=== PATIENT | female | born 1945 ===

== ENCOUNTER 2019-03-12 23:53 | Observation (INO) | payer MEDICARE, MEDICAID ==
[2019-03-12 23:54] VITALS: BMI 33.6
[2019-03-13 01:08] LABS: BASO % 0.3 % (0.0-2.0); HEMOGLOBIN 9.5 g/dL (12.0-16.0); LYMPH # 1.3 K/uL (1.0-4.3); LYMPH % 45.3 % (20.0-40.0); MEAN CELL VOLUME 82.7 fl (81.0-99.0); MEAN CORPUSCULAR HEMOGLOBIN 25.5 pg (27.0-31.0); MEAN CORPUSCULAR HGB CONC 30.8 g/dL (33.0-37.0); MEAN PLATELET VOLUME 9.8 fl (7.2-11.7); MONO # 0.3 K/uL (0.0-0.8); NEUT # 1.3 K/uL (1.8-7.0); NEUT % 45.4 % (50.0-75.0); NRBC % 0.1 % (0.0-0.0); RBC 3.74 Mil/uL (3.80-5.20); RED CELL DISTRIBUTION WIDTH 16.3 % (11.5-14.5); WHITE BLOOD COUNT 2.9 K/uL (4.8-10.8)
[2019-03-13 01:12] LABS: PROTHROMBIN TIME 10.9 Seconds (9.8-13.1)
--- NOTE | 2019-03-13 01:12 | ED PDOC ---
HPI: General Adult Time Seen by Provider: 03/13/19 00:21 Chief Complaint (Nursing): Chest Pain Chief Complaint (Provider): Dizziness History Per: Patient History/Exam Limitations: no limitations Onset/Duration Of Symptoms: Hrs (at 6pm ) Additional Complaint(s): 73 year old female with pmhx of type 2 diabetes and unsure of any other pmhx presents to the ED for an evaluation of dizziness onset at 6pm with multiple episodes of fainting which did not occur. Patient is compliant with her medicat ion including Metformin and Metoprolol. Otherwise, patient denies chest pain, shortness of breath, fever, numbness or weakness. 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[facility] PMD: Balbir Diallo Past Medical History Reviewed: Historical Data, Nursing Documentation, Vital Signs Vital Signs: Last Vital Signs Temp 97.7 F 03/13/19 00:00 Pulse 41 L 03/13/19 00:00 Resp 16 03/13/19 00:00 BP 136/59 L 03/13/19 00:20 Pulse Ox 99 03/13/19 00:00 Primary Care Provider: Balbir Diallo - Medical History PMH: Anemia, Anxiety, Arthritis (CERVICAL SPINE), Asthma, CAD, Depression, Diabetes, HTN, Hypercholesterolemia, Peripheral Edema - Surgical History Surgical History: CABG (X2), Coronary Stent, Endoscopy - Family History Family History: States: Unknown Family Hx - Home Medications Home Medications: Ambulatory Orders Medication Instructions Recorded Clopidogrel [Plavix] 75 mg PO DAILY #0 tab 12/09/14 MetFORMIN [glucoPHAGE] 1,000 mg PO BID 02/22/16 Montelukast [Singulair] 10 mg PO DAILY 06/09/16 Aspirin [Ecotrin] 1 tab PO DAILY 07/18/16 Acetaminophen/Oxycodone Hydr 1 tab PO PRN PRN 03/13/19 [Percocet 10/325 mg Tab] Alprazolam [Xanax] 2 mg PO PRN PRN 03/13/19 Bisoprolol Fumarate 5 mg PO DAILY 03/13/19 Isosorbide Mononitrate ER [Imdur 60 mg PO DAILY 03/13/19 ER] Mirtazapine [Remeron] 7.5 mg PO DAILY 03/13/19 - Allergies Allergies/Adverse Reactions: Allergies Allergy/AdvReac Type Severity Reaction Status Date / Time No Known Allergies Allergy Verified 03/13/19 00:00 Review of Systems ROS Statement: Except As Marked, All Systems Reviewed And Found Negative Constitutional: Negative for: Fever Cardiovascular: Negative for: Chest Pain Respiratory: Negative for: Cough, Shortness of Breath Neurological: Positive for: Dizziness. Negative for: Weakness, Numbness Physical Exam - Reviewed Nursing Documentation Reviewed: Yes Vital Signs Reviewed: Yes - Physical Exam Appears: Positive for: Non-toxic, No Acute Distress Head Exam: Positive for: ATRAUMATIC, NORMAL INSPECTION, NORMOCEPHALIC Skin: Positive for: Normal Color, Warm, DRY Eye Exam: Positive for: EOMI, Normal appearance, PERRL ENT: Positive for: Normal ENT Inspection Neck: Positive for: Normal, Painless ROM, Supple. Negative for: Decreased ROM Cardiovascular/Chest: Positive for: Regular Rate, Rhythm, Bradycardia (with 1st degree block, on beta-blockers, patient symptomatic ), Other (HR fluctuations low 40s to 70s) Respiratory: Positive for: Normal Breath Sounds. Negative for: Decreased Breath Sounds, Wheezing, Respiratory Distress Gastrointestinal/Abdominal: Positive for: Normal Exam, Soft. Negative for: Tenderness, Guarding, Rebound Back: Positive for: Normal Inspection Extremity: Positive for: Normal ROM. Negative for: Tenderness, Pedal Edema, Deformity Neurological/Psych: Positive for: Awake, Alert, Normal Tone, Oriented (x3) - Laboratory Results Result Diagrams: 03/14/19 04:55 03/13/19 07:25 - ECG ECG Rhythm: Positive for: 1st Degree Heart Block, Left Bundle Branch Block Rate: 44 O2 Sat by Pulse Oximetry: 99 (RA) Pulse Ox Interpretation: Normal Medical Decision Making Medical Decision Making: Time: 40 Impression: most likely cardiac etiology. Will get brain CT scan to r/o any other etiology, labs and admit patient BBK type and screen BNP CMP Troponin CBC w/ Differential PTT Prothrombin time Chest portable [RAD] UA Re-evaluation EKbpm, 1st degree AV block and Left bundle branch block 41 Case discussed with automation architect, Dr. Fishman Scribe Attestation: Documented by Tip Browne, acting as a scribe for Anabella Horton MD Provider Scribe Attestation: All medical record entries made by the Scribe were at my direction and personally dictated by me. I have reviewed the chart and agree that the record accurately reflects my personal performance of the history, physical exam, medical decision making, and the department course for this patient. I have also personally directed, reviewed, and agree with the discharge instructions and disposition. Disposition - Clinical Impression Clinical Impression: Acute chest pain, Dizziness, Bradycardia - Disposition Disposition Time: 00:51 Condition: GUARDED
[2019-03-13 01:15] LABS: PARTIAL THROMBOPLASTIN TIME 36.6 Seconds (25.6-37.1)
[2019-03-13 01:17] LABS: ALB/GLOB RATIO 1.3 (1.0-2.1); ALBUMIN 4.3 g/dL (3.5-5.0); ALT/SGPT 13 U/L (9-52); AST/SGOT 23 U/L (14-36); BLOOD UREA NITROGEN 15 mg/dl (7-17); CALCIUM 8.8 mg/dL (8.4-10.2); GFR NON-AFRICAN AMERICAN > 60
[2019-03-13 01:29] LABS: B-TYPE NATRIURETIC PEPTIDE 535 pg/ml (0-900)
[2019-03-13 02:17] LABS: SQUAMOUS EPITHIAL 1 /hpf (0-5); URINE BACTERIA RARE (<OCC); URINE BILIRUBIN NEGATIVE (NEGATIVE); URINE BLOOD NEGATIVE (NEGATIVE); URINE CLARITY CLEAR (Clear); URINE COLOR STRAW (YELLOW); URINE GLUCOSE (UA) NEG (NEGATIVE); URINE LEUKOCYTE ESTERASE NEG Leu/uL (Negative); URINE PROTEIN NEGATIVE (NEGATIVE); URINE UROBILINOGEN 0.2-1.0 mg/dL (0.2-1.0)
[2019-03-13] MEDS ORDERED: Oxycodone/Acetaminophen 5/325 mg Tab PO PRN (06:05)
--- NOTE | 2019-03-13 07:47 | CP.PCM.HP ---
<WoodruffFredo irving - Last Filed: 03/13/19 09:01> History of Present Illness - History of Present Illness History of Present Illness: 73 year old female with PMH of type 2 diabetes presents to the ED for an evaluation of dizziness since yesterday with multiple episodes of near syncope. Patient reports having also some chest discomfort and occasional headache because she also suffers migraines. She reports compliance with her medication including Metformin and Metoprolol. Otherwise she denies shortness of breath, syncope, loc, blurry vision, recent fever, numbness or weakness. 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 MHx: HTN, DM2, COPD, Anemia, Anxiety, Arthritis, CAD, Hypercholesterolemia, Peripheral Edema SHx: CABG (X2), Coronary Stent, Endoscopy Allergies: NKDA Medications: as per med rec Family Hx: reviewed, no relevant findings Social Hx: Lives alone, no EtOH, former smoker-- quit 15 years ago but >2 PPD for many years prior Present on Admission - Present on Admission Any Indicators Present on Admission: No Review of Systems - Review of Systems All systems: reviewed and no additional remarkable complaints except (HPI) Past Patient History - Infectious Disease Hx of Infectious Diseases: None - Tetanus Immunizations Tetanus Immunization: Unknown - Past Medical History & Family History Past Medical History?: Yes - Past Social History Smoking Status: Former Smoker - CARDIAC Hx Cardiac Disorders: Yes Hx Hypercholesterolemia: Yes Hx Hypertension: Yes - PULMONARY Hx Asthma: Yes - HEENT Hx HEENT Problems: No - RENAL Hx Chronic Kidney Disease: No - ENDOCRINE/METABOLIC Hx Endocrine Disorders: Yes Hx Diabetes Mellitus Type 2: Yes - HEMATOLOGICAL/ONCOLOGICAL Hx AIDS: No Hx Anemia: Yes Hx Blood Transfusions: Yes Hx Blood Transfusion Reaction: No Hx Human Immunodeficiency Virus (HIV): No - INTEGUMENTARY Hx Dermatological Problems: No - MUSCULOSKELETAL/RHEUMATOLOGICAL Hx Arthritis: Yes (CERVICAL SPINE) Hx Falls: Yes - GASTROINTESTINAL Hx Gastrointestinal Disorders: Yes Hx Hemorrhoids: Yes HX Swallowing Problems: Yes - GENITOURINARY/GYNECOLOGICAL Hx Genitourinary Disorders: Yes Hx Incontinence: Yes (Wears adult diapers) - PSYCHIATRIC Hx Psychophysiologic Disorder: Yes Hx Anxiety: Yes Hx Depression: Yes Hx Substance Use: No - SURGICAL HISTORY Hx Coronary Artery Bypass Graft: Yes (X2) Hx Coronary Stent: Yes Hx Herniorrhaphy: Yes (umbilical hernia) Hx Hysterectomy: Yes - ANESTHESIA Hx Anesthesia: Yes Hx Anesthesia Reactions: No Hx Malignant Hyperthermia: No Meds Allergies/Adverse Reactions: Allergies Allergy/AdvReac Type Severity Reaction Status Date / Time No Known Allergies Allergy Verified 03/13/19 00:00 Physical Exam - Constitutional Appears: Non-toxic, No Acute Distress - Head Exam Head Exam: NORMAL INSPECTION - Eye Exam Eye Exam: EOMI, PERRL - ENT Exam ENT Exam: Mucous Membranes Moist - Neck Exam Neck exam: Positive for: Full Rom. Negative for: Tenderness, Thyromegaly - Respiratory Exam Respiratory Exam: Clear to Auscultation Bilateral, NORMAL BREATHING PATTERN. absent: Chest Wall Tenderness, Rales, Wheezes - Cardiovascular Exam Cardiovascular Exam: Bradycardia, REGULAR RHYTHM, +S1, +S2. absent: Systolic Murmur - GI/Abdominal Exam GI & Abdominal Exam: Normal Bowel Sounds, Soft. absent: Distended, Guarding, Tenderness - Extremities Exam Extremities exam: Negative for: calf tenderness, pedal edema - Neurological Exam Neurological exam: Alert, CN II-XII Intact, Oriented x3 - Psychiatric Exam Psychiatric exam: Normal Mood - Skin Skin Exam: Dry, Warm Results - Vital Signs Recent Vital Signs: Last Vital Signs Temp 97.8 F 03/13/19 02:31 Pulse 47 L 03/13/19 02:31 Resp 18 03/13/19 02:31 BP 135/67 03/13/19 02:31 Pulse Ox 100 03/13/19 02:31 - Labs Result Diagrams: 03/13/19 07:25 03/13/19 07:25 Labs: Laboratory Results - last 24 hr 03/13/19 03/13/19 03/13/19 00:45 00:45 00:45 WBC 2.9 L RBC 3.74 L Hgb 9.5 L Hct 31.0 L MCV 82.7 D MCH 25.5 L MCHC 30.8 L RDW 16.3 H Plt Count 208 MPV 9.8 Neut % (Auto) 45.4 L Lymph % (Auto) 45.3 H [place] % (Auto) 9.0 Eos % (Auto) 0.0 Baso % (Auto) 0.3 Neut # (Auto) 1.3 L Lymph # (Auto) 1.3 [place] # (Auto) 0.3 Eos # (Auto) 0.0 Baso # (Auto) 0.0 PT 10.9 INR 1.0 APTT 36.6 Sodium 135 Potassium 4.6 Chloride 99 Carbon Dioxide 28 Anion Gap 13 BUN 15 Creatinine 0.6 L Est GFR ( Amer) > 60 Est GFR (Non-Af Amer) > 60 POC Glucose (mg/dL) Random Glucose 94 Calcium 8.8 Total Bilirubin 0.2 AST 23 ALT 13 Alkaline Phosphatase 79 Troponin I < 0.0120 NT-Pro-B Natriuret Pep 535 Total Protein 7.6 Albumin 4.3 Globulin 3.3 Albumin/Globulin Ratio 1.3 Urine Color Urine Clarity Urine pH Ur Specific [place] Urine Protein Urine Glucose (UA) Urine Ketones Urine Blood Urine Nitrate Urine Bilirubin Urine Urobilinogen Ur Leukocyte Esterase Urine RBC (Auto) Ur Squamous Epith Cells Urine Bacteria Blood Type Antibody Screen Antibody Identification Antigen Identification BBK History Checked 03/13/19 03/13/19 03/13/19 00:45 02:11 04:10 WBC RBC Hgb Hct MCV MCH MCHC RDW Plt Count MPV Neut % (Auto) Lymph % (Auto) [place] % (Auto) Eos % (Auto) Baso % (Auto) Neut # (Auto) Lymph # (Auto) [place] # (Auto) Eos # (Auto) Baso # (Auto) PT INR APTT Sodium Potassium Chloride Carbon Dioxide Anion Gap BUN Creatinine Est GFR ( Amer) Est GFR (Non-Af Amer) POC Glucose (mg/dL) Random Glucose Calcium Total Bilirubin AST ALT Alkaline Phosphatase Troponin I < 0.0120 NT-Pro-B Natriuret Pep Total Protein Albumin Globulin Albumin/Globulin Ratio Urine Color Straw Urine Clarity Clear Urine pH 6.0 Ur Specific [place] 1.006 Urine Protein Negative Urine Glucose (UA) Neg Urine Ketones Negative Urine Blood Negative Urine Nitrate Negative Urine Bilirubin Negative Urine Urobilinogen 0.2-1.0 Ur Leukocyte Esterase Neg Urine RBC (Auto) < 1 Ur Squamous Epith Cells 1 Urine Bacteria Rare Blood Type O POSITIVE Antibody Screen Positive Antibody Identification Anti K Antigen Identification K Antigen - NEGATIVE BBK History Checked Patient has bt 03/13/19 05:21 WBC RBC Hgb Hct MCV MCH MCHC RDW Plt Count MPV Neut % (Auto) Lymph % (Auto) [place] % (Auto) Eos % (Auto) Baso % (Auto) Neut # (Auto) Lymph # (Auto) [place] # (Auto) Eos # (Auto) Baso # (Auto) PT INR APTT Sodium Potassium Chloride Carbon Dioxide Anion Gap BUN Creatinine Est GFR ( Amer) Est GFR (Non-Af Amer) POC Glucose (mg/dL) 93 Random Glucose Calcium Total Bilirubin AST ALT Alkaline Phosphatase Troponin I NT-Pro-B Natriuret Pep Total Protein Albumin Globulin Albumin/Globulin Ratio Urine Color Urine Clarity Urine pH Ur Specific [place] Urine Protein Urine Glucose (UA) Urine Ketones Urine Blood Urine Nitrate Urine Bilirubin Urine Urobilinogen Ur Leukocyte Esterase Urine RBC (Auto) Ur Squamous Epith Cells Urine Bacteria Blood Type Antibody Screen Antibody Identification Antigen Identification BBK History Checked Assessment & Plan - Assessment and Plan (Free Text) Assessment: 73 yo female patient with extensive PMH admitted for evaluation and management of dizziness. Plan: Dizziness - likely 2/2 to marked Bradycardia/AV block 1st degree seen in EKG - admit to tele - CXR negative for acute lung disease - Cardiology consulted, input appreciated - patient noted to be on 2 B-blockers, held for now - continue cardiac monitoring - resumed rest of home meds - DVT ppx - rest of plan as ordered Case seen and examined with Dr Samuel. <Mark Samuel - Last Filed: 03/14/19 15:23> Results - Vital Signs Recent Vital Signs: Last Vital Signs Temp 97.8 F 03/14/19 08:12 Pulse 47 L 03/14/19 08:12 Resp 20 03/14/19 08:12 BP 115/56 L 03/14/19 08:12 Pulse Ox 97 03/14/19 08:12 - Labs Result Diagrams: 03/14/19 04:55 03/13/19 07:25 Labs: Laboratory Results - last 24 hr 03/13/19 03/14/19 03/14/19 21:48 04:55 06:21 WBC 2.8 L RBC 3.52 L Hgb 9.1 L Hct 28.4 L MCV 80.9 L MCH 25.8 L MCHC 31.8 L RDW 16.3 H Plt Count 198 MPV 10.0 Neut % (Auto) 29.1 L Lymph % (Auto) 60.8 H [place] % (Auto) 9.5 Eos % (Auto) 0.0 Baso % (Auto) 0.6 Neut # (Auto) 0.8 L Lymph # (Auto) 1.7 [place] # (Auto) 0.3 Eos # (Auto) 0.0 Baso # (Auto) 0.0 POC Glucose (mg/dL) 121 H 91 Assessment & Plan - Assessment and Plan (Free Text) Assessment: Patient was personally seen and examined by me in rounds with residents. Available labs and diagnostic data reviewed. Case, Patient's condition and management plan discussed with residents in rounds. Agree with resident's progress note. Plan: As ordered.
[2019-03-13 08:04] LABS: HEMOGLOBIN 9.5 g/dL (12.0-16.0); MEAN CELL VOLUME 81.9 fl (81.0-99.0); MEAN CORPUSCULAR HEMOGLOBIN 25.5 pg (27.0-31.0); MEAN CORPUSCULAR HGB CONC 31.1 g/dL (33.0-37.0); RBC 3.72 Mil/uL (3.80-5.20); RED CELL DISTRIBUTION WIDTH 16.4 % (11.5-14.5); WHITE BLOOD COUNT 3.1 K/uL (4.8-10.8)
[2019-03-13 08:15] LABS: ALB/GLOB RATIO 1.2 (1.0-2.1); ALBUMIN 3.8 g/dL (3.5-5.0); ALT/SGPT 15 U/L (9-52); AST/SGOT 22 U/L (14-36); BLOOD UREA NITROGEN 12 mg/dl (7-17); CALCIUM 8.8 mg/dL (8.4-10.2); GFR NON-AFRICAN AMERICAN > 60; HDL CHOLESTEROL 51 MG/DL (30-70)
[2019-03-13 08:27] LABS: LDL CHOLESTEROL 114 mg/dL (0-129)
[2019-03-13 08:45] LABS: T3 0.995 nmol/L (1.49-2.60)
[2019-03-13] MEDS: Enoxaparin 40 mg Syringe SC SCH (09:44)
--- NOTE | 2019-03-13 11:47 | RAD ---
Date of service: 03/13/2019 HISTORY: Dizziness, possible admission. COMPARISON: 10/10/2017 FINDINGS: LUNGS: No active pulmonary disease. PLEURA: No significant pleural effusion identified, no pneumothorax apparent. CARDIOVASCULAR: Cardiomegaly. No radiographic findings to suggest acute or significant cardiovascular disease. Incidental Finding(s): Postoperative changes related to sternotomy. These are new findings. athletic monitor device imbedded in the subcutaneous soft tissues of the chest to the right of the midline. OSSEOUS STRUCTURES: No significant abnormalities. VISUALIZED UPPER ABDOMEN: Large hiatal hernia. Similar finding seen previously. OTHER FINDINGS: None. IMPRESSION: No active disease. No significant interval change compared to the prior examination(s).
--- NOTE | 2019-03-13 14:20 | CP.PCM.CON ---
History of Present Illness - History of Present Illness History of Present Illness: 73-year-old female came to the hospital complaining of lightheadedness and near syncope. She is a hypertensive diabetic who has had coronary artery disease requiring coronary bypass graft surgery in March of last year. She has recovered from it quite well and is fairly active without getting any chest pain and denies any symptoms of congestive cardiac failure. This consultation was requested because of bradycardia upon arriving in the emergency room. Physical examination shows an elderly lady who is alert awake coherent afebrile. Gets in and out of bed unassisted and is able to use the bathroom without any sense of lightheadedness. Telemetry shows her heart rate to be 64 bpm and regular. Her blood pressure was 156/70 mmHg. Her jugular venous pressure was not elevated and there was no edema over her lower extremity. The pedal pulses were feeble but distinctly present. A scar of sternotomy was evident. The apex was not palpable the first and second heart sounds were normal. There was no gallop there were no rales. Her abdomen was soft liver and spleen were not palpable. Her electrocardiogram in the emergency room shows sinus bradycardia with a left bundle branch block. Review of her labs show a mild normocytic normochromic anemia. Her BUN/creatinine were normal and her electrolytes were essentially normal. Normal troponins ruled out an acute coronary syndrome. The rest of her labs were noted. Review of her medication list at home indicate that the patient was taking bisoprolol and metoprolol together. These have been withheld now. Impression: Drug-induced bradycardia in a patient taking metoprolol and bisoprolol together. These have been withdrawn and the patient's bradycardia appears to be resolving. The patient has stable coronary artery disease following coronary bypass graft surgery x2 last year. Diabetes mellitus hypertension dyslipidemia. The patient may be allowed to return home when appropriate by her admitting physician. Past Patient History - Infectious Disease Hx of Infectious Diseases: None - Tetanus Immunizations Tetanus Immunization: Unknown - Past Medical History & Family History Past Medical History?: Yes - Past Social History Smoking Status: Former Smoker - CARDIAC Hx Cardiac Disorders: Yes Hx Hypercholesterolemia: Yes Hx Hypertension: Yes - PULMONARY Hx Asthma: Yes - HEENT Hx HEENT Problems: No - RENAL Hx Chronic Kidney Disease: No - ENDOCRINE/METABOLIC Hx Endocrine Disorders: Yes Hx Diabetes Mellitus Type 2: Yes - HEMATOLOGICAL/ONCOLOGICAL Hx AIDS: No Hx Anemia: Yes Hx Blood Transfusions: Yes Hx Blood Transfusion Reaction: No Hx Human Immunodeficiency Virus (HIV): No - INTEGUMENTARY Hx Dermatological Problems: No - MUSCULOSKELETAL/RHEUMATOLOGICAL Hx Arthritis: Yes (CERVICAL SPINE) Hx Falls: Yes - GASTROINTESTINAL Hx Gastrointestinal Disorders: Yes Hx Hemorrhoids: Yes HX Swallowing Problems: Yes - GENITOURINARY/GYNECOLOGICAL Hx Genitourinary Disorders: Yes Hx Incontinence: Yes (Wears adult diapers) - PSYCHIATRIC Hx Psychophysiologic Disorder: Yes Hx Anxiety: Yes Hx Depression: Yes Hx Substance Use: No - SURGICAL HISTORY Hx Coronary Artery Bypass Graft: Yes (X2) Hx Coronary Stent: Yes Hx Herniorrhaphy: Yes (umbilical hernia) Hx Hysterectomy: Yes - ANESTHESIA Hx Anesthesia: Yes Hx Anesthesia Reactions: No Hx Malignant Hyperthermia: No Meds Allergies/Adverse Reactions: Allergies Allergy/AdvReac Type Severity Reaction Status Date / Time No Known Allergies Allergy Verified 03/13/19 00:00 - Medications Medications: Current Medications Acetaminophen (Tylenol 325mg Tab) 650 mg PO Q6 PRN PRN Reason: Other Alprazolam (Xanax) 2 mg PO BID PRN PRN Reason: Anxiety Last Admin: 03/13/19 10:17 Dose: 2 mg Aspirin (Ecotrin) 81 mg PO DAILY [facility] Last Admin: 03/13/19 09:42 Dose: 81 mg Clopidogrel Bisulfate (Plavix) 75 mg PO DAILY [facility] Last Admin: 03/13/19 09:44 Dose: 75 mg Enoxaparin Sodium (Lovenox) 40 mg SC DAILY [facility]; Protocol Last Admin: 03/13/19 09:44 Dose: 40 mg Isosorbide Mononitrate (Imdur) 60 mg PO DAILY [facility] Last Admin: 03/13/19 09:43 Dose: 60 mg Metformin HCl (Glucophage) 1,000 mg PO BID [facility] Last Admin: 03/13/19 09:43 Dose: 1,000 mg Mirtazapine (Remeron) 7.5 mg PO DAILY [facility] Montelukast Sodium (Singulair) 10 mg PO DAILY [facility] Last Admin: 03/13/19 09:44 Dose: 10 mg Oxycodone/Acetaminophen (Percocet 5/325 Mg Tab) 1 tab PO Q6H PRN PRN Reason: Pain, severe (8-10) Stop: 03/16/19 06:06 Results - Vital Signs Recent Vital Signs: Last Vital Signs Temp 98.3 F 03/13/19 11:42 Pulse 53 L 03/13/19 11:42 Resp 18 03/13/19 11:42 BP 100/61 03/13/19 11:42 Pulse Ox 98 03/13/19 11:42 - Labs Result Diagrams: 03/13/19 07:25 03/13/19 07:25 Labs: Laboratory Results - last 24 hr 03/13/19 03/13/19 03/13/19 00:45 00:45 00:45 WBC 2.9 L RBC 3.74 L Hgb 9.5 L Hct 31.0 L MCV 82.7 D MCH 25.5 L MCHC 30.8 L RDW 16.3 H Plt Count 208 MPV 9.8 Neut % (Auto) 45.4 L Lymph % (Auto) 45.3 H [place] % (Auto) 9.0 Eos % (Auto) 0.0 Baso % (Auto) 0.3 Neut # (Auto) 1.3 L Lymph # (Auto) 1.3 [place] # (Auto) 0.3 Eos # (Auto) 0.0 Baso # (Auto) 0.0 PT 10.9 INR 1.0 APTT 36.6 Sodium 135 Potassium 4.6 Chloride 99 Carbon Dioxide 28 Anion Gap 13 BUN 15 Creatinine 0.6 L Est GFR ( Amer) > 60 Est GFR (Non-Af Amer) > 60 POC Glucose (mg/dL) Random Glucose 94 Calcium 8.8 Total Bilirubin 0.2 AST 23 ALT 13 Alkaline Phosphatase 79 Troponin I < 0.0120 NT-Pro-B Natriuret Pep 535 Total Protein 7.6 Albumin 4.3 Globulin 3.3 Albumin/Globulin Ratio 1.3 Triglycerides Cholesterol LDL Cholesterol Direct HDL Cholesterol Vitamin B12 Thyroxine (T4) Total T3 TSH 3rd Generation Urine Color Urine Clarity Urine pH Ur Specific [place] Urine Protein Urine Glucose (UA) Urine Ketones Urine Blood Urine Nitrate Urine Bilirubin Urine Urobilinogen Ur Leukocyte Esterase Urine RBC (Auto) Ur Squamous Epith Cells Urine Bacteria Blood Type Antibody Screen Antibody Identification Antigen Identification BBK History Checked 03/13/19 03/13/19 03/13/19 00:45 02:11 04:10 WBC RBC Hgb Hct MCV MCH MCHC RDW Plt Count MPV Neut % (Auto) Lymph % (Auto) [place] % (Auto) Eos % (Auto) Baso % (Auto) Neut # (Auto) Lymph # (Auto) [place] # (Auto) Eos # (Auto) Baso # (Auto) PT INR APTT Sodium Potassium Chloride Carbon Dioxide Anion Gap BUN Creatinine Est GFR ( Amer) Est GFR (Non-Af Amer) POC Glucose (mg/dL) Random Glucose Calcium Total Bilirubin AST ALT Alkaline Phosphatase Troponin I < 0.0120 NT-Pro-B Natriuret Pep Total Protein Albumin Globulin Albumin/Globulin Ratio Triglycerides Cholesterol LDL Cholesterol Direct HDL Cholesterol Vitamin B12 Thyroxine (T4) Total T3 TSH 3rd Generation Urine Color Straw Urine Clarity Clear Urine pH 6.0 Ur Specific [place] 1.006 Urine Protein Negative Urine Glucose (UA) Neg Urine Ketones Negative Urine Blood Negative Urine Nitrate Negative Urine Bilirubin Negative Urine Urobilinogen 0.2-1.0 Ur Leukocyte Esterase Neg Urine RBC (Auto) < 1 Ur Squamous Epith Cells 1 Urine Bacteria Rare Blood Type O POSITIVE Antibody Screen Positive Antibody Identification Anti K Antigen Identification K Antigen - NEGATIVE BBK History Checked Patient has bt 03/13/19 03/13/19 03/13/19 05:21 07:25 07:25 WBC 3.1 L RBC 3.72 L Hgb 9.5 L Hct 30.5 L MCV 81.9 MCH 25.5 L MCHC 31.1 L RDW 16.4 H Plt Count 174 MPV Neut % (Auto) Lymph % (Auto) [place] % (Auto) Eos % (Auto) Baso % (Auto) Neut # (Auto) Lymph # (Auto) [place] # (Auto) Eos # (Auto) Baso # (Auto) PT INR APTT Sodium 139 Potassium 4.7 Chloride 101 Carbon Dioxide 33 H Anion Gap 10 BUN 12 Creatinine 0.5 L Est GFR ( Amer) > 60 Est GFR (Non-Af Amer) > 60 POC Glucose (mg/dL) 93 Random Glucose 85 Calcium 8.8 Total Bilirubin 0.2 AST 22 ALT 15 Alkaline Phosphatase 77 Troponin I NT-Pro-B Natriuret Pep Total Protein 7.0 Albumin 3.8 Globulin 3.2 Albumin/Globulin Ratio 1.2 Triglycerides 271 H D Cholesterol 208 H LDL Cholesterol Direct 114 HDL Cholesterol 51 Vitamin B12 723 Thyroxine (T4) 6.17 Total T3 0.995 L TSH 3rd Generation 0.84 Urine Color Urine Clarity Urine pH Ur Specific [place] Urine Protein Urine Glucose (UA) Urine Ketones Urine Blood Urine Nitrate Urine Bilirubin Urine Urobilinogen Ur Leukocyte Esterase Urine RBC (Auto) Ur Squamous Epith Cells Urine Bacteria Blood Type Antibody Screen Antibody Identification Antigen Identification BBK History Checked
[2019-03-14 07:41] LABS: BASO % 0.6 % (0.0-2.0); HEMOGLOBIN 9.1 g/dL (12.0-16.0); LYMPH # 1.7 K/uL (1.0-4.3); LYMPH % 60.8 % (20.0-40.0); MEAN CELL VOLUME 80.9 fl (81.0-99.0); MEAN CORPUSCULAR HEMOGLOBIN 25.8 pg (27.0-31.0); MEAN CORPUSCULAR HGB CONC 31.8 g/dL (33.0-37.0); MONO # 0.3 K/uL (0.0-0.8); MONO % 9.5 % (0.0-10.0); NEUT # 0.8 K/uL (1.8-7.0); NEUT % 29.1 % (50.0-75.0); NRBC % 0.5 % (0.0-0.0); RBC 3.52 Mil/uL (3.80-5.20); RED CELL DISTRIBUTION WIDTH 16.3 % (11.5-14.5); WHITE BLOOD COUNT 2.8 K/uL (4.8-10.8)
[2019-03-14 08:12] VITALS: BP 115/56; RESP 20; TEMP 97.8
[2019-03-14] MEDS: Enoxaparin 40 mg Syringe SC SCH (09:19)
--- NOTE | 2019-03-14 11:12 | PN ---
DATE: 03/14/2019 SUBJECTIVE: The patient is seen and examined. Interim events noted. Consults noted and appreciated. Cardiology followup and intervention noted and appreciated. 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 The patient feels much better. No chest pain. No shortness of breath. No dizziness. No palpitation. PHYSICAL EXAMINATION: GENERAL: The patient is in no acute distress. VITAL SIGNS: Stable. HEART: S1, S2, normal and regular. LUNGS: Good bilateral air exchange. ABDOMEN: Soft, nontender. EXTREMITIES: No edema. No calf swelling. No tenderness. No acute ischemia. CENTRAL NERVOUS SYSTEM: Essentially unchanged. The patient's headache is resolved. The patient was not able to speak very well. No acute focal . DIAGNOSTIC DATA: Available diagnostic data reviewed. Telemetry monitoring. Still sinus bradycardia with heart rate in . ASSESSMENT AND PLAN: Overall, the patient is medically stable. Slow heart rate was most likely combination of two beta blockers. We will discharge the patient home. The patient will be followed up by primary care physicians and consultants. Case and plan discussed with the patient. Mark Samuel MD
[2019-03-15 03:24] VITALS: PULSE 44; O2SAT 99
== END 2019-03-14 13:30 | disposition home or self-care (01) ==
LOC: H.ER 23:53 → INTOOBSV 03-13 00:51 → H.ERHOLD 03-13 00:51 → H.TEL 03-13 02:27
PROVIDERS: ADMIT Internal Medicine; ATTEND Internal Medicine
DX: R00.1 Bradycardia, unspecified (principal); T44.7X5A Adverse effect of beta-adrenoreceptor antagonists, initial encounter; R55 Syncope and collapse; I44.0 Atrioventricular block, first degree; D64.9 Anemia, unspecified; E11.9 Type 2 diabetes mellitus without complications; E78.00 Pure hypercholesterolemia, unspecified; E78.5 Hyperlipidemia, unspecified; G43.909 Migraine, unspecified, not intractable, without status migrainosus; I10 Essential (primary) hypertension; I25.10 Atherosclerotic heart disease of native coronary artery without angina pectoris; I44.7 Left bundle-branch block, unspecified; J45.909 Unspecified asthma, uncomplicated; Y92.9 Unspecified place or not applicable; Z79.02 Long term (current) use of antithrombotics/antiplatelets; Z79.82 Long term (current) use of aspirin; Z87.891 Personal history of nicotine dependence; Z95.1 Presence of aortocoronary bypass graft; Z95.5 Presence of coronary angioplasty implant and graft; F32.9 Major depressive disorder, single episode, unspecified; F41.9 Anxiety disorder, unspecified; K64.9 Unspecified hemorrhoids; M46.92 Unspecified inflammatory spondylopathy, cervical region; R32 Unspecified urinary incontinence; Z79.84 Long term (current) use of oral hypoglycemic drugs; Z79.899 Other long term (current) drug therapy
CPT/HCPCS: 36415; 71045; 80053; 80061; 81003; 82607; 82948; 83880; 84436; 84443; 84480; 84484; 85025; 85027; 85610; 85730; 86850; 86860; 86870; 86900; 99282; G0378; J1650